=== PATIENT | female | born 1980 | race Caucasian/White ===

== ENCOUNTER 2022-07-15 13:49 | Outpatient (CLI) | payer OTHER, SELFPAY ==
--- NOTE | ~2022-07-15 | US_ITS ---
EXAMINATION: US pelvic complete w TV DATE: 07/15/2022 15:13 INDICATION: Pelvic pain and rectal bleeding Comparison:No prior studies for comparison. TECHNIQUE: Multiple transabdominal and endovaginal sonographic images of the pelvis performed. FINDINGS: The uterus measures 7.8 x 3.7 x 3.4 cm. The endometrial complex measures 8 mm. There are bilateral pelvic structures with follicular changes, consistent with ovaries, although per clinical history she has had a prior oophorectomy. Clinically correlate. The right ovary measures 2.5 x 2 x 2.2 cm and the left ovary measures 2.2 x 1.6 x 1.6 cm. There are small follicles in each ovar y. Normal doppler signal in both ovaries. There is no free fluid in the pelvis. There are no abnormal masses seen on either side. IMPRESSION: 1. Unremarkable pelvic ultrasound. Reviewed, dictated and finalized at location A. GE ROOM ATTENDANT
== END 2022-07-15 13:50 | disposition home or self-care (01) ==
LOC: CHSIMG 13:54
PROVIDERS: PCP Physician Assistant; Visit Provider Physician Assistant
DX: R10.2 Pelvic and perineal pain (principal)
CPT/HCPCS: 76830; 76856

== ENCOUNTER 2022-10-02 20:50 | Emergency (ER) | payer OTHER, SELFPAY ==
--- NOTE | ~2022-10-02 | CT_ITS ---
EXAMINATION: CT abdomen pelvis w con INDICATION: Diffuse upper abdominal pain TECHNIQUE: Computed tomographic images of the abdomen and pelvis were obtained after the administrati on of 100 cc of Omnipaque 350 intravenous contrast. The dose-length product (DLP) was 565.86 mGy-cm. Automated exposure control and iterative reconstruction technique were employed. COMPARISON: None available FINDINGS: Minimal dependent atelectasis is present in the lung bases. The heart size is normal. The l iver, spleen, pancreas, gallbladder, and adrenal glands are normal. There is a 4 x 7 mm stone of the left ureteropelvic junction. Cysts of the kidneys measure up to 11 mm on the right. No pathologically enlarged abdominal or pelvic lymph nodes are identified. No free intraperitoneal gas or evidence of bowel obstruction. The appendix is normal. A moderate volume of colonic stool is present. IMPRESSION: 1. 4 mm x 7 mm stone of the left ureteropelvic junction Reviewed, dictated and finalized at location A. NT RELATIONSHIP CONSULTANT
--- NOTE | ~2022-10-02 | XR_ITS ---
EXAMINATION: XR abdomen/kub 1V INDICATION: Left UPJ stone TECHNIQUE: Supine views of the abdomen were obtained on 2 radiographs. COMPARISON: CT from yesterday FINDINGS: Contrast from earlier CT partially opacifies the urinary tract and obscures the left UPJ st one identified on the CT. The visualized lung bases are clear. A moderate volume of colonic stool is present. . IMPRESSION: 1. Known left UPJ stone obscured by contrast from earlier CT. Reviewed, dictated and finalized at location A. TRONIC WARFARE SPECIALIST
[2022-10-02 20:55] VITALS: BP 128/79; PULSE 82; RESP 16; TEMP 36.3; O2SAT 99
[2022-10-02 21:33] LABS: Basophils Absolute Auto 0.1 K/mm3 (0.0-0.1); Basophils Percent Auto 0.7 % (0.2-1.2); Eosinophils Percent Auto 8.4 % (0-4.4); Hemoglobin 12.3 g/dL (12.0-15.0); Immature Granulocyte Absolute 0.07 K/mm3 (0.00-0.031); Immature Granulocyte Percent A 0.6 % (0-0.5); Lymphocytes Absolute Auto 1.75 K/mm3 (0.9-3.2); Lymphocytes Percent Auto 14.9 % (18.3-44.2); Mean Corpuscular HGB Conc 33.2 g/dl (32-36); Mean Corpuscular Hemoglobin 29.6 pg (26-34); Mean Corpuscular Volume 88.9 fl (80-100); Mean Platelet Volume 8.8 fl (7.4-10.4); Monocytes Absolute Auto 0.8 K/mm3 (0.1-0.6); Monocytes Percent Auto 6.7 % (2.6-8.5); Neutrophils Absolute Auto 8.1 K/mm3 (1.3-6.7); Neutrophils Percent Auto 68.7 % (45.5-73.1); Platelet Count Result 300 k/mm3 (150-375); Red Blood Count 4.16 M/mm3 (4.2-5.4); Red Cell Distribution Width 13.2 % (11.5-14.5); White Blood Count 11.7 K/mm3 (4.5-10.0)
[2022-10-02 21:46] LABS: Alanine Aminotransferase 21 U/L (6-35); Albumin Level 3.8 g/dL (3.5-5.1); Alkaline Phosphatase 61 U/L (38-126); Anion Gap 5 mmol/L (8-16); Aspartate Amino Transferase 23 U/L (14-36); Bilirubin,Total 0.3 mg/dL (0.2-1.3); Blood Urea Nitrogen 11 mg/dL (7-17); Calcium 8.6 mg/dL (8.4-10.2); Carbon Dioxide 28 mmol/L (22-30); Chloride 102 mmol/L (98-107); Estimated CRCL calculation 103 ml/min; Estimated Glomerular Filt Rate > 60; Glucose 103 mg/dL (65-110); Lipase 217 U/L (23-300); Potassium 4.1 mmol/L (3.4-5.0); Sodium 135 mmol/L (137-145)
[2022-10-02 21:47] LABS: Add Urine Microscopic? YES; Appearance Urine Slightly Cloudy (Clear); Bilirubin Urine Negative (Negative); Blood Urine 3+ (Negative); Color Urine Brown (Yellow); Glucose Urine UA Negative (Negative); Ketones Urine Negative (Negative); Leukocyte Esterase Ur Negative LEU/UL (Negative); Nitrate Urine Negative (Negative); Protein Urine 2+ mg/dL (Negative); Specific Grav Ur >= 1.030 (1.001-1.035); Urobilinogen Urine 0.2 mg/dL (<2.0); pH Urine 5.5 (5.0-9.0)
[2022-10-02 22:13] LABS: Mucus Urine Rare /lpf; RBC Urine >75 /hpf (0-2); Squamous Epithelial Cell Urine Few /hpf (Few)
--- NOTE | 2022-10-02 22:28 | ED.ABDPAIN ---
HPI - Abdominal Pain General Chief Complaint: Abdominal Pain Stated Complaint: abdominal pain Time Seen by Provider: 10/02/22 21:32 Source: patient Mode of arrival: ambulatory Limitations: no limitations History of Present Illness HPI narrative: Patient is a 42-year-old female who presents the ED with report of upper abdominal pain. Patient reports she has been dealing with intermittent abdominal pain for the last 1 month. She is seen at [place] [facility] emergency department on 09/14 at which point she was diagnosed with colitis. She has since finished a 7-day course of Cipro and Flagyl and is scheduled to undergo colonoscopy with Dr. Haywood next . Over the last couple days, patient has had worsening abdominal pain and bloating. Tonight while driving, she began feeling dizzy with worsening pain in her upper abdomen, which prompted her presentation. Patient took tramadol earlier in the afternoon, but has not had anything for pain recently. She also reports having dysuria, dark urine, hematuria, denies fever, N/V, diarrhea, CP, SOB. Related Data Allergies Allergy/AdvReac Type Severity Reaction Status Date / Time acetaminophen [From Vicodin] Allergy Rash Verified 10/03/22 03:13 hydrocodone [From Vicodin] Allergy Rash Verified 10/03/22 03:13 Review of Systems Review of Systems: CONSTITUTIONAL: Denies fever, chills, or sweats. CARDIOVASCULAR: Denies chest pain. RESPIRATORY: Denies dyspnea. GASTROINTESTINAL: See HPI. GENITOURINARY: See HPI. SKIN: Denies rash or itching. MUSCULOSKELETAL: Denies back pain, joint pain, or myalgia. NEUROLOGIC: See HPI. All systems reviewed & are unremarkable except as noted in HPI and below PMFSH Past Medical History Medical History Anxiety Asthma Insomnia Surgical History Surgical History No pertinent past surgical history Social History Social History Smoking status: Never smoker Exam Narrative: GENERAL: Well appearing, obese, non-toxic, in no acute distress. HEAD: Normocephalic, atraumatic. NECK: Supple. No adenopathy, no masses. RESPIRATORY: Airway patent, respirations nonlabored. Clear to auscultation bilaterally, no rales, rhonchi, wheezing. CARDIOVASCULAR: Regular rate and rhythm without murmurs, rubs, or gallops. Radial pulses 2+ and equal bilaterally. ABDOMINAL: Soft, diffuse tenderness throughout upper abdomen, no focal tenderness, nondistended, no hepatosplenomegaly. Normoactive BS. MUSCULOSKELETAL: Moves all extremities. Strength/ROM intact without gross deformities. SKIN: Warm, dry, normal color. No rashes. NEURO: A&O X3. Speech clear. Cranial nerves II-XII grossly intact. Steady gait. No ataxic movements. PSYCHIATRIC: Appropriate mood and affect. Normal interaction. Course Vital Signs Vital signs: Vital Signs Temperature 97.4 F L 10/02/22 20:55 Pulse Rate 82 10/02/22 20:55 Respiratory Rate 16 10/02/22 20:55 Blood Pressure 128/79 10/02/22 20:55 Pulse Oximetry 99 10/02/22 20:55 Oxygen Delivery Room Air 10/02/22 20:55 Temperature 97.4 F L 10/02/22 20:55 Pulse Rate 82 10/02/22 20:55 Respiratory Rate 16 10/02/22 20:55 Blood Pressure 128/79 10/02/22 20:55 Pulse Oximetry 99 10/02/22 20:55 Oxygen Delivery Room Air 10/02/22 20:55 MDM - Abdominal Pain MDM Narrative Medical decision making narrative: Patient presented to ED with acute on chronic abdominal pain, recent diagnosis of colitis and renal stone at outside hospital. Vitals stable upon arrival. Patient with diffuse upper abdominal tenderness on exam. Mild leukocytosis of 11.7. CMP unremarkable. Stable kidney function. Lipase within normal limits. UA with blood and 10-[address] WBC[address] Sent for culture. CT scan of abdomen pelvis obtained showing left UPJ stone, 4 x 7 mm, no significant hydronephrosis.
[2022-10-02] MEDS: MORPHINE SULFATE (*CRX) 4 MG/ML INJ IV PUSH (23:55)
[2022-10-02] MEDS: SODIUM CHLORIDE 0.9% IV 1,000 ML 999 ML IV CONT (23:55)
[2022-10-02] MEDS: ONDANSETRON INJ 4 MG/2 ML VIAL IV PUSH (23:59)
[2022-10-02] MEDS: PANTOPRAZOLE SODIUM IV 40 MG VIAL IV PUSH (23:59)
[2022-10-03 01:37] LABS: Influenza A QL RT-PCR Negative (Negative); Influenza B QL RT-PCR Negative (Negative); SARS-CoV-2 RNA PCR Negative
[2022-10-03] MEDS: TAMSULOSIN HCL 0.4 MG CAPSULE PO (03:12)
== END 2022-10-03 03:22 | disposition home or self-care (01) ==
PROVIDERS: Emergency Medicine; Emergency Provider Physician Assistant; PCP Physician Assistant
DX: N20.1 Calculus of ureter (principal); Z20.822 Contact with and (suspected) exposure to COVID-19; J45.909 Unspecified asthma, uncomplicated
CPT/HCPCS: 36415; 74018; 74177; 80053; 81001; 83690; 85025; 87086; 87636; 99284; A9270; C9113; J2270; J2405; J7030; Q9967